=== PATIENT | female | born 2000 | race Caucasian/White ===

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

== ENCOUNTER 2021-11-15 11:57 | Emergency (ER) | payer OTHER ==
[2021-11-15 12:51] LABS: HEMOGLOBIN 13.4 gm/dl (12.3-15.3); RED BLOOD COUNT 4.03 M/UL (4.00-5.10); WHITE BLOOD COUNT 10.1 K/UL (4.5-11.0)
[2021-11-15 13:18] LABS: BUN/CREATININE RATIO 13 (0-10)
[2021-11-15] MEDS ORDERED: CEFDINIR300 MG PO (13:59)
== END 2021-11-15 14:05 | disposition home or self-care (01) ==
LOC: ER1 11:57
PROVIDERS: Physician Assistant
DX: O23.43 Unspecified infection of urinary tract in pregnancy, third trimester (principal); O23.13 Infections of bladder in pregnancy, third trimester; O99.413 Diseases of the circulatory system complicating pregnancy, third trimester; I87.1 Compression of vein; Z3A.33 33 weeks gestation of pregnancy
CPT/HCPCS: 80053; 81001; 82550; 82553; 83690; 84484; 85025; 87086; 93005; 96374; 99284; J0696